=== PATIENT | female | born 1975 | race Caucasian/White ===

== ENCOUNTER 2020-03-25 02:40 | Emergency (ER) | payer MEDICAID ==
[~2020-03-25] VITALS: Ht 154.9 cm; Wt 59.0 kg
[2020-03-25 02:45] VITALS: BP_SYST 132
[2020-03-25] MEDS: IBUPROFEN 600 MG TABLET PO ONE (03:45)
[2020-03-25] MEDS: AMOXICILLIN 500 MG CAPSULE PO ONE (03:45)
[2020-03-25 03:50] VITALS: BP_SYST 128
== END 2020-03-25 03:50 | disposition home or self-care (01) ==
LOC: SED 02:40
DX: J03.90 Acute tonsillitis, unspecified (principal)
CPT/HCPCS: 36415; 86403; 87081; 99283

== ENCOUNTER 2021-12-07 23:47 | Emergency (ER) | payer MEDICAID ==
[~2021-12-07] VITALS: Ht 154.9 cm; Wt 61.2 kg
[2021-12-07 23:57] VITALS: BP_SYST 154
[2021-12-08] MEDS ORDERED: ACETAMINOPHEN 500 MG TABLET PO ONE (00:15)
[2021-12-08 01:08] LABS: BASOPHILS % (AUTO) 0.4 % (0.0-2.0); EOSINOPHILS % (AUTO) 0.4 % (0.0-4.0); HEMATOCRIT 39.7 % (36-48); HEMOGLOBIN 13.6 g/dL (12.0-16.0); LYMPHOCYTES # (AUTO) 2.7 K/uL (1.0-5.5); LYMPHOCYTES % (AUTO) 28.9 % (20.5-51.5); MEAN CORPUSCULAR HEMOGLOBIN 31 pg (27-31); MEAN CORPUSCULAR HGB CONC 34 % (32-36); MEAN CORPUSCULAR VOLUME 91 fL (79.0-98.0); MONOCYTES # (AUTO) 0.7 K/uL (0.0-1.0); MONOCYTES % (AUTO) 7.3 % (1.7-9.3); PLATELET COUNT (AUTO) 299 K/uL (130-430); RED BLOOD CELL COUNT(AUTO) 4.38 MIL/uL (4.2-6.2); RED CELL DISTRIBUTION WIDTH 13.4 % (9.0-15.0); WHITE BLOOD COUNT (AUTO) 9.5 K/uL (4.8-10.8)
[2021-12-08 01:12] LABS: CALCIUM 8.3 mg/dL (8.4-11.0); CREATININE 0.91 mg/dL (0.55-1.30); POTASSIUM 3.5 mmol/L (3.5-5.1)
[2021-12-08 01:25] LABS: ALBUMIN 3.4 g/dL (3.4-4.8); TOTAL BILIRUBIN 0.4 mg/dL (0.0-1.0)
[2021-12-08 01:27] LABS: BILIRUBIN,URINE NEGATIVE (NEGATIVE); BLOOD, URINE NEGATIVE (NEGATIVE); CLARITY/URINE CLEAR (CLEAR); COLOR,URINE YELLOW (YELLOW); GLUCOSE,URINE NEGATIVE (NEGATIVE); KETONES,URINE TRACE (NEGATIVE); LEUKOCYTE ESTERASE ,URINE NEGATIVE (NEGATIVE); NITRITE, URINE NEGATIVE (NEGATIVE); PH,URINE 5.5 (5.0-8.0); PROTEIN URINE NEGATIVE (NEGATIVE)
[2021-12-08] MEDS ORDERED: ACET-3465 PO (01:46)
[2021-12-08] MEDS ORDERED: NAPR-688 PO (01:46)
[2021-12-08 02:00] VITALS: BP_SYST 135
== END 2021-12-08 02:00 | disposition home or self-care (01) ==
LOC: SED 23:47
DX: S39.011A Strain of muscle, fascia and tendon of abdomen, initial encounter (principal); I10 Essential (primary) hypertension; X58.XXXA Exposure to other specified factors, initial encounter; Y93.89 Activity, other specified; Y92.89 Other specified places as the place of occurrence of the external cause; Y99.8 Other external cause status
CPT/HCPCS: 36415; 74018; 80053; 81003; 81025; 83690; 85025; 99284

== ENCOUNTER 2022-09-15 23:56 | Emergency (ER) | payer MEDICAID ==
[~2022-09-15] VITALS: Ht 154.9 cm; Wt 5.4 kg
[~2022-09-15 23:56] MED LIST: ACET-3465 PO; NAPR-688 PO
[2022-09-16 00:22] VITALS: BP_SYST 78; BP_SYST 98
--- NOTE | 2022-09-16 00:32 | NUR ---
DR. MOON WITH PATIENT IN TRIAGE FOR MSE.
--- NOTE | 2022-09-16 00:35 | NUR ---
PT FROM HOME WITH C/O HEADACE, BODY ACHES X 1 DAY. PT JUST STATES SHE DOES NOT FEEL WELL. PT TESTED NEGATIVE WITH AT HOME COVID TEST YESTERDAY.
--- NOTE | 2022-09-16 00:39 | NUR ---
COVID AND FLU SAMPLE COLLECTED AND SENT TO LAB
[2022-09-16] MEDS ORDERED: CYCL10TA24 PO (00:51)
[2022-09-16] MEDS ORDERED: IBUP-1969 PO (00:51)
[2022-09-16] MEDS ORDERED: KETOROLAC TROMETHAMINE 60 MG/2 ML VIAL IM ONE (01:00)
--- NOTE | 2022-09-16 01:30 | NUR ---
Patient given written and verbal discharge instructions and verbalizes understanding. ER DR. MOON discussed with patient the results and treatment provided. Patient in stable condition. ID arm band removed. Rx of FLEXERIL given. Patient educated on pain management and to follow up with PMD. Pain Scale 0. Opportunity for questions provided and answered. Medication side effect fact sheet provided.
== END 2022-09-16 01:30 | disposition home or self-care (01) ==
LOC: SED 23:56
DX: J02.9 Acute pharyngitis, unspecified (principal); M79.10 Myalgia, unspecified site; R51.9 Headache, unspecified; R11.0 Nausea; Z79.899 Other long term (current) drug therapy; Z20.822 Contact with and (suspected) exposure to COVID-19
CPT/HCPCS: 99283; 87426; 36415; 87804 ×2; 96372; J1885

== ENCOUNTER 2023-08-29 12:23 | Emergency (ER) | payer MEDICAID ==
[~2023-08-29] VITALS: Ht 154.9 cm; Wt 61.2 kg
[~2023-08-29 12:23] MED LIST changes: +CYCL10TA24 PO; +IBUP-1969 PO
[2023-08-29 12:37] VITALS: BP_SYST 130; PULSE 67; RESP 16; TEMP 98.7; O2SAT 100
[2023-08-29 13:13] LABS: BASOPHILS % (AUTO) 0.4 % (0.0-2.0); EOSINOPHILS # (AUTO) 0.2 K/uL (0.0-0.4); EOSINOPHILS % (AUTO) 2.1 % (0.0-4.0); LYMPHOCYTES # (AUTO) 2.2 K/uL (1.0-5.5); LYMPHOCYTES % (AUTO) 30.3 % (20.5-51.5); MEAN CORPUSCULAR HEMOGLOBIN 32 pg (27-31); MEAN CORPUSCULAR HGB CONC 34 % (32-36); MEAN CORPUSCULAR VOLUME 94 fL (79.0-98.0); MONOCYTES # (AUTO) 0.5 K/uL (0.0-1.0); MONOCYTES % (AUTO) 7.4 % (1.7-9.3); NEUTROPHILS # (AUTO) 4.4 K/uL (1.8-7.7); NEUTROPHILS % (AUTO) 59.8 % (40.0-70.0); PLATELET COUNT (AUTO) 304 K/uL (130-430); RED BLOOD CELL COUNT(AUTO) 4.37 MIL/uL (4.2-6.2); RED CELL DISTRIBUTION WIDTH 14.2 % (9.0-15.0); WHITE BLOOD COUNT (AUTO) 7.4 K/uL (4.8-10.8)
[2023-08-29 13:24] LABS: CREATININE 0.81 mg/dL (0.55-1.30); POTASSIUM 4.8 mmol/L (3.5-5.1)
[2023-08-29 13:28] LABS: INR 0.9 (0.8-1.2); PROTHROMBIN TIME 9.4 SECS (9.5-12.5)
[2023-08-29 13:29] LABS: ALBUMIN 3.6 g/dL (3.4-4.8); TOTAL BILIRUBIN 0.3 mg/dL (0.0-1.0); TOTAL PROTEIN, SERUM 7.6 g/dL (6.4-8.3)
[2023-08-29 13:33] LABS: BILIRUBIN,URINE NEGATIVE (NEGATIVE); BLOOD, URINE NEGATIVE (NEGATIVE); CLARITY/URINE CLEAR (CLEAR); COLOR,URINE YELLOW (YELLOW); GLUCOSE,URINE NEGATIVE (NEGATIVE); KETONES,URINE NEGATIVE (NEGATIVE); LEUKOCYTE ESTERASE ,URINE NEGATIVE (NEGATIVE); NITRITE, URINE NEGATIVE (NEGATIVE); PROTEIN URINE NEGATIVE (NEGATIVE); UROBILINOGEN,URINE 0.2 (0.2-1.0)
[2023-08-29] MEDS ORDERED: ACETAMINOPHEN 500 MG TABLET PO ONE (14:00)
[2023-08-29] MEDS ORDERED: IBUP-1969 PO (15:09)
[2023-08-29] MEDS ORDERED: HYDR-3917 PO ×2 (15:09→15:13)
[2023-08-29 15:23] VITALS: BP_SYST 130; PULSE 67; RESP 16; TEMP 98.7; O2SAT 100
== END 2023-08-29 15:24 | disposition home or self-care (01) ==
LOC: SED 12:23
DX: D25.9 Leiomyoma of uterus, unspecified (principal); K62.5 Hemorrhage of anus and rectum; I10 Essential (primary) hypertension; I25.2 Old myocardial infarction; F17.200 Nicotine dependence, unspecified, uncomplicated; Z79.899 Other long term (current) drug therapy
CPT/HCPCS: 36415; 76376; 76856; 80053; 81001; 81003; 81025; 83690; 85025; 85610; 85730; 99284

== ENCOUNTER 2023-10-01 19:30 | Emergency (ER) | payer BC, MEDICAID ==
[~2023-10-01] VITALS: Ht 154.9 cm; Wt 68.0 kg
[~2023-10-01 19:30] MED LIST changes: +HYDR-3917 PO
[2023-10-01 20:27] VITALS: BP_SYST 131; PULSE 68; RESP 18; TEMP 97.5; O2SAT 99
[2023-10-01 21:44] LABS: BASOPHILS % (AUTO) 0.3 % (0.0-2.0); EOSINOPHILS # (AUTO) 0.2 K/uL (0.0-0.4); EOSINOPHILS % (AUTO) 2.8 % (0.0-4.0); HEMATOCRIT 42.3 % (36-48); HEMOGLOBIN 14.5 g/dL (12.0-16.0); LYMPHOCYTES # (AUTO) 2.5 K/uL (1.0-5.5); LYMPHOCYTES % (AUTO) 31.7 % (20.5-51.5); MEAN CORPUSCULAR HEMOGLOBIN 32 pg (27-31); MEAN CORPUSCULAR HGB CONC 34 % (32-36); MEAN CORPUSCULAR VOLUME 94 fL (79.0-98.0); MONOCYTES # (AUTO) 0.5 K/uL (0.0-1.0); MONOCYTES % (AUTO) 6.9 % (1.7-9.3); NEUTROPHILS # (AUTO) 4.5 K/uL (1.8-7.7); NEUTROPHILS % (AUTO) 58.3 % (40.0-70.0); PLATELET COUNT (AUTO) 318 K/uL (130-430); RED BLOOD CELL COUNT(AUTO) 4.52 MIL/uL (4.2-6.2); RED CELL DISTRIBUTION WIDTH 13.8 % (9.0-15.0); WHITE BLOOD COUNT (AUTO) 7.7 K/uL (4.8-10.8)
[2023-10-01] MEDS ORDERED: HYDR-3917 PO (21:50)
[2023-10-01 21:58] LABS: CALCIUM 8.6 mg/dL (8.4-11.0); CREATININE 0.87 mg/dL (0.55-1.30); POTASSIUM 4.1 mmol/L (3.5-5.1)
[2023-10-01 22:02] VITALS: BP_SYST 126; PULSE 50; RESP 16; TEMP 97.5; O2SAT 100
== END 2023-10-01 22:02 | disposition home or self-care (01) ==
LOC: SED 19:30
DX: N93.8 Other specified abnormal uterine and vaginal bleeding (principal); I10 Essential (primary) hypertension; R10.30 Lower abdominal pain, unspecified; Z87.42 Personal history of other diseases of the female genital tract; Z79.899 Other long term (current) drug therapy
CPT/HCPCS: 36415; 80048; 81025; 85025; 99283

== ENCOUNTER 2024-03-23 14:48 | Emergency (ER) | payer BC ==
[~2024-03-23] VITALS: Ht 154.9 cm; Wt 65.8 kg
[2024-03-23 14:50] VITALS: BP_SYST 109; PULSE 93; RESP 18; TEMP 97.9; O2SAT 98
[2024-03-23] MEDS: NACL 0.9% 1,000 ML IV ONE (16:47)
[2024-03-23 16:51] LABS: EOSINOPHILS # (AUTO) 0.3 K/uL (0.0-0.4); MEAN CORPUSCULAR HGB CONC 34 % (32-36)
[2024-03-23] MEDS: MORPHINE 4 MG INJ. 4 MG/ML VIAL IVP ONE (16:51)
[2024-03-23] MEDS: ONDANSETRON HCL 4 MG/2 ML VIAL IVP ONE (16:51)
[2024-03-23 16:57] LABS: INR 0.9 (0.8-1.2); PROTHROMBIN TIME 9.9 SECS (9.5-12.5)
[2024-03-23 16:59] LABS: BASOPHILS # (AUTO) 0.1 K/uL (0.0-0.2); BASOPHILS % (AUTO) 0.8 % (0.0-2.0); EOSINOPHILS % (AUTO) 3.7 % (0.0-4.0); HEMATOCRIT 41.7 % (36-48); LYMPHOCYTES # (AUTO) 2.4 K/uL (1.0-5.5); LYMPHOCYTES % (AUTO) 24.9 % (20.5-51.5); MEAN CORPUSCULAR HEMOGLOBIN 31 pg (27-31); MEAN CORPUSCULAR VOLUME 93 fL (79.0-98.0); MONOCYTES # (AUTO) 0.7 K/uL (0.0-1.0); NEUTROPHILS % (AUTO) 63.6 % (40.0-70.0); PLATELET COUNT (AUTO) 383 K/uL (130-430); RED CELL DISTRIBUTION WIDTH 13.1 % (9.0-15.0); WHITE BLOOD COUNT (AUTO) 9.5 K/uL (4.8-10.8)
[2024-03-23 16:59] LABS: BILIRUBIN,URINE NEGATIVE (NEGATIVE); CLARITY/URINE CLEAR (CLEAR); COLOR,URINE YELLOW (YELLOW); GLUCOSE,URINE NEGATIVE (NEGATIVE); KETONES,URINE TRACE (NEGATIVE); LEUKOCYTE ESTERASE ,URINE NEGATIVE (NEGATIVE); NITRITE, URINE NEGATIVE (NEGATIVE); PROTEIN URINE NEGATIVE (NEGATIVE)
[2024-03-23] MEDS: DIPHENHYDRAMINE INJ 50 MG/ML VIAL IVP ONE (16:59)
[2024-03-23 17:06] LABS: ALANINE AMINOTRANSFERASE 304 U/L (12-78); ALBUMIN 3.5 g/dL (3.4-4.8); ANION GAP 9 (5-15); ASPARTATE AMINOTRANSFERASE 85 U/L (10-37); CALCIUM 8.9 mg/dL (8.4-11.0); CARBON DIOXIDE 27 mmol/L (23-29); CHLORIDE 103 mmol/L (98-107); CREATININE 1.07 mg/dL (0.55-1.30); GFR AFRICAN AMERICAN 71 mL/min (>90); GLUCOSE 95 mg/dL (74-106); POTASSIUM 4.4 mmol/L (3.5-5.1); SODIUM SERUM 139 mmol/L (136-145); TOTAL BILIRUBIN 0.5 mg/dL (0.0-1.0); TOTAL PROTEIN, SERUM 7.5 g/dL (6.4-8.3); UREA NITROGEN, BLOOD 15 mg/dL (8-21)
[2024-03-23 17:09] LABS: BILIRUBIN,DIRECT 0.3 mg/dL (0.0-0.3); LIPASE 67 U/L (16-77)
[2024-03-23 17:24] LABS: GFR NON AFRICAN-AMERICAN 59 mL/min (>90)
[2024-03-23 17:35] LABS: BLOOD, URINE TRACE (NEGATIVE)
[2024-03-23 17:36] LABS: BACTERIA,URINE FEW /HPF (None Seen); RBC,URINE NONE SEEN /HPF (0-3); WBC,URINE 0-3 /HPF (0-3)
[2024-03-23 17:37] LABS: MUCUS,URINE 1+ /LPF (None Seen)
[2024-03-23] MEDS ORDERED: ONDA-8 TL (18:33)
[2024-03-23] MEDS ORDERED: OMEP20CA15 PO (18:33)
[2024-03-23] MEDS ORDERED: IBUP-1969 PO (18:33)
[2024-03-23 18:52] VITALS: BP_SYST 128; PULSE 70; RESP 19; TEMP 97.9; O2SAT 97
== END 2024-03-23 18:52 | disposition home or self-care (01) ==
LOC: SED 14:48
DX: K66.8 Other specified disorders of peritoneum (principal); R11.0 Nausea; I25.2 Old myocardial infarction; I10 Essential (primary) hypertension; Z90.710 Acquired absence of both cervix and uterus; Z79.899 Other long term (current) drug therapy; Z79.2 Long term (current) use of antibiotics
CPT/HCPCS: 99285; 74176; 96374; 96375; 71045; 96361; 80076; 80048; 81001; 83690; 85025; 85610; 85730; 87040; 87086; 84484; 36415; 93005; 81025; 83605; J1200; J2405; J2270; J7030; 81000; 81015